=== PATIENT | male | born 1955 | race African-American/Black ===

== ENCOUNTER 2018-10-22 21:29 | Emergency (ER) | payer OTHER ==
[~2018-10-22] VITALS: Ht 172.7 cm; Wt 61.2 kg
--- NOTE | 2018-10-22 21:37 | ED.ADGEN ---
Past History Past Medical History: Arthritis, COPD, Schizophrenia, Other Smoking: Greater than 1 pack/day Alcohol Use: Occasionally Adult General Chief Complaint Chief Complaint ".. I think I got the flu...I ve been sick two weeks now... fever, coughing, hurts when I cough...I am tired..I can't do anything.... I get so short of breath.. can you check me for pneumonia..".." I will not be admitted for any reason..." HPI HPI Patient is a 63 year old male who presents with above hx and complaints, dyspnea ,cough, sore throat, myalgia, arthralgia, fever, chills, and generalized malaise. Patient has a 88-[id number]-diet smoking history. Patient continues to smoke approximately 2 packs of cigarettes a day. Recently has not been able to smoke as much because he is too short of breath. Patient denies any specific ill contacts or recent travel. Patient denies any history immunosuppression. Patient has been told before that he has bronchitis and possibly COPD. Patient does have a past history of schizophrenia, but no current hallucinations or delusions. Patient is on full disability for his schizophrenia. [facility]. Patient denies any previous heart attacks. Review of Systems Review of Systems Constitutional: History of fever or chills [] Eyes: Denies change in visual acuity, redness, or eye pain [] HENT: History of nasal congestion and sore throat [] Respiratory: History of chronic cough and shortness of breath [] Cardiovascular: No additional information not addressed in HPI [] GI: Denies abdominal pain,, vomiting, bloody stools or diarrhea []history of nausea : Denies dysuria or hematuria [] Musculoskeletal: Denies back pain or joint pain [] Integument: Denies rash or skin lesions [] Neurologic: Denies headache, focal weakness or sensory changes [] Endocrine: Denies polyuria or polydipsia [] All other systems were reviewed and found to be within normal limits, except as documented in this note. Family History Family History Noncontributory Current Medications Current Medications Current Medications Medications (Trade) Dose Ordered Sig/Shadi Start Time Stop Time Status Last Admin Dose Admin Aspirin (Aiden Aspirin) 325 mg 1X ONCE 10/22/18 21:45 10/22/18 21:46 DC 10/22/18 22:18 325 MG Azithromycin (Zithromax) 500 mg 1X ONCE 10/22/18 23:30 10/22/18 23:30 DC Ceftriaxone Sodium 1 gm/ Sodium Chloride 50 ml @ 100 mls/hr 1X ONCE 10/22/18 23:30 10/22/18 23:30 DC Enoxaparin Sodium (Lovenox 60mg Syringe) 60 mg 1X ONCE 10/22/18 23:30 10/22/18 23:30 DC Info (Do NOT chart on this entry -- for MONITORING) 1 each PRN DAILY PRN 10/22/18 23:00 10/22/18 23:15 DC Iohexol (Omnipaque 350 Mg/ml) 100 ml 1X ONCE 10/22/18 23:30 10/22/18 23:30 DC Lactated Ringer's 1,000 ml @ 100 mls/hr Q10H 10/22/18 21:39 10/22/18 23:15 DC 10/22/18 22:23 100 MLS/HR Methylprednisolone Sodium Succinate (SOLU-Medrol 125MG VIAL) 125 mg 1X ONCE 10/22/18 23:30 10/22/18 23:30 DC Potassium Chloride (KCl Oral Soln) 40 meq 1X ONCE 10/22/18 23:30 10/22/18 23:30 DC See nursing for home medications Allergies Allergies Allergies Coded Allergies Type Severity Reaction Last Updated Verified No Known Drug Allergies 10/22/18 No Physical Exam Physical Exam Constitutional: Moderately acute distress, ill in appearance HENT: Normocephalic, atraumatic, bilateral external ears normal, oropharynx moist, no oral exudates, nose rhinorrhea. Poor dentition Eyes: PERRLA, EOMI, conjunctiva normal, no discharge. [] Neck: Normal range of motion, no tenderness, supple, no stridor. [] Cardiovascular: Tachycardia Heart rate regular rhythm, no murmur []does have occasional PVC on monitor Lungs & Thorax: Bilateral breath sounds equal at apex with scattered wheezing throughout on auscultation . Has []basilar rhonchi bilaterally Abdomen: Bowel sounds normal, soft, no tenderness, no masses, no pulsatile masses. [] Skin: Warm, dry, no erythema, . []Poor turgor. Ichthyosis Back: No tenderness, no CVA tenderness. [] Extremities: No tenderness, no cyanosis, no clubbing, ROM intact, no edema. [ Arthritic changes. Muscle wasting Neurologic: Alert and oriented X 3, normal motor function, normal sensory function, no gross focal deficits noted. [] Psychologic: Affect anxious, judgement normal, mood normal. []No active hallucinations or delusions. No suicidal or homicidal ideations Current Patient Data Vital Signs Vital Signs Date Time Temp Pulse Resp B/P (MAP) Pulse Ox O2 Delivery O2 Flow Rate FiO2 10/22/18 22:36 100 18 109/55 (73) 95 Nasal Cannula 2.0 10/22/18 21:40 98.8 Lab Results Laboratory Tests Test 10/22/18 21:56 10/22/18 22:09 10/22/18 22:26 10/22/18 22:37 White Blood Count 10.5 x10^3/uL (4.0-11.0) Red Blood Count 3.98 x10^6/uL (4.30-5.70) L Hemoglobin 12.7 g/dL (13.0-17.5) L Hematocrit 36.9 % (39.0-53.0) L Mean Corpuscular Volume 93 fL (79-100) Mean Corpuscular Hemoglobin 32 pg (25-35) Mean Corpuscular Hemoglobin Concent 35 g/dL (31-37) Red Cell Distribution Width 14.2 % (11.5-14.5) Platelet Count 294 x10^3/uL (140-400) Neutrophils (%) (Auto) 78 % (31-73) H Lymphocytes (%) (Auto) 15 % (24-48) L Monocytes (%) (Auto) 6 % (0-9) Eosinophils (%) (Auto) 0 % (0-3) Basophils (%) (Auto) 1 % (0-3) Neutrophils # (Auto) 8.2 x10^3uL (1.8-7.7) H Lymphocytes # (Auto) 1.6 x10^3/uL (1.0-4.8) Monocytes # (Auto) 0.6 x10^3/uL (0.0-1.1) Eosinophils # (Auto) 0.0 x10^3/uL (0.0-0.7) Basophils # (Auto) 0.1 x10^3/uL (0.0-0.2) Prothrombin Time 9.7 SEC (9.4-11.4) Prothrombin Time INR 1.0 (0.9-1.1) PTT 35 SEC (23-33) H D-Dimer (Valentina) 1.00 mg/L (0.00-0.50) H Sodium Level 133 mmol/L (136-145) L Potassium Level 2.6 mmol/L (3.5-5.1) *L Chloride Level 95 mmol/L (98-107) L Carbon Dioxide Level 29 mmol/L (21-32) Anion Gap 9 (6-14) Blood Urea Nitrogen 17 mg/dL (8-26) Creatinine 1.0 mg/dL (0.7-1.3) Estimated GFR (Cockcroft-Gault) 91.3 Glucose Level 100 mg/dL (70-99) H Calcium Level 8.6 mg/dL (8.5-10.1) Magnesium Level 1.9 mg/dL (1.8-2.4) Total Bilirubin 0.3 mg/dL (0.2-1.0) Direct Bilirubin 0.1 mg/dL (0.0-0.2) Aspartate Amino Transferase (AST) 24 U/L (15-37) Alanine Aminotransferase (ALT) 26 U/L (16-63) Alkaline Phosphatase 104 U/L (46-116) Creatine Kinase 88 U/L (39-308) Troponin I Quantitative < 0.017 ng/mL (0-0.055) DC-Vzy-K-Type Natriuretic Peptide 63 pg/mL (0-124) Total Protein 7.2 g/dL (6.4-8.2) Albumin 2.4 g/dL (3.4-5.0) L Triglycerides Level 120 mg/dL (0-150) Cholesterol Level 132 mg/dL (0-200) LDL Cholesterol, Calculated 88 mg/dL (0-100) VLDL Cholesterol, Calculated 24 mg/dL (0-40) Non-HDL Cholesterol Calculated 112 mg/dL (0-129) HDL Cholesterol 20 mg/dL (40-60) L Cholesterol/HDL Ratio 6.0 Thyroid Stimulating Hormone (TSH) 1.802 uIU/mL (0.358-3.740) Blood pH 7.50 (7.35-7.46) H Blood Gas PCO2 37 mmHg (35-46) Blood Gas PO2 23 mmHg (80-100) *L Blood Gas HCO3 29 mmol/L (21-28) H Arterial Bld O2 Saturation (Calc) 46 % (92-99) L FiO2 21 % Influenza Type A (Rapid) Negative (NEGATIVE) Influenza Type B (Rapid) Negative (NEGATIVE) Group A Streptococcus Rapid Negative (NEGATIVE) EKG EKG My interpretation EKG shows a sinus rhythm at 98 bpm. Does have some nonspecific anterior lateral changes. But no findings of acute STEMI with contralateral changes does have somewhat prolonged QT interval at 86 ms QTC is 508 ms[] Radiology/Procedures Radiology/Procedures My interpretation Patient chest x-ray has findings of chronic lung changes such as COPD. Does have bibasilar infiltrates consistent with pneumonia.[] Course & Med Decision Making Course & Med Decision Making Pertinent Labs and Imaging studies reviewed. (See chart for details). After steroids and antibiotics and breathing treatments patient's symptoms improved. Patient however would not be admitted. Patient refused to stay even long enough to get a prescription for antibiotics. Stated he would come back after he got stuff at home done. Begged patient to reconsider his decision to leave. Patient exhibits UCAR capacity- significant other also begged patient to stay. Patient refused. Patient refused to take any prescription . Stated he would come back or go to [facility]. Advised pt to stop smoking, push juice drinks and return at any time. [] Final Impression Final Impression 1. Respiratory failure-hypoxia[] 2. Acute on chronic COPD exacerbation 3. Basilar pneumonia and atypical pattern- suspect viral 4. Hypokalemia-critical 2.6 5. Hyponatremia 133 6. Anemia Hgb 12.7 7. Malnutrition Alb. 2.4 8. Elevated D-dimer 1.0 9. History of schizophrenia Dragon Disclaimer Dragon Disclaimer This electronic medical record was generated, in whole or in part, using a voice recognition dictation system. Discharge Summary Visit Information Final Diagnosis Problems Medical Problems: (1) Left against medical advice Status: Acute Brief Hospital Course Allergies Allergies Coded Allergies Type Severity Reaction Last Updated Verified No Known Drug Allergies 10/22/18 No Vital Signs Vital Signs Date Time Temp Pulse Resp B/P (MAP) Pulse Ox O2 Delivery O2 Flow Rate FiO2 10/22/18 22:36 100 18 109/55 (73) 95 Nasal Cannula 2.0 10/22/18 21:40 98.8 Lab Results Laboratory Tests Test 10/22/18 21:56 10/22/18 22:09 10/22/18 22:26 10/22/18 22:37 White Blood Count 10.5 x10^3/uL (4.0-11.0) Red Blood Count 3.98 x10^6/uL (4.30-5.70) Hemoglobin 12.7 g/dL (13.0-17.5) Hematocrit 36.9 % (39.0-53.0) Mean Corpuscular Volume 93 fL (79-100) Mean Corpuscular Hemoglobin 32 pg (25-35) Mean Corpuscular Hemoglobin Concent 35 g/dL (31-37) Red Cell Distribution Width 14.2 % (11.5-14.5) Platelet Count 294 x10^3/uL (140-400) Neutrophils (%) (Auto) 78 % (31-73) Lymphocytes (%) (Auto) 15 % (24-48) Monocytes (%) (Auto) 6 % (0-9) Eosinophils (%) (Auto) 0 % (0-3) Basophils (%) (Auto) 1 % (0-3) Neutrophils # (Auto) 8.2 x10^3uL (1.8-7.7) Lymphocytes # (Auto) 1.6 x10^3/uL (1.0-4.8) Monocytes # (Auto) 0.6 x10^3/uL (0.0-1.1) Eosinophils # (Auto) 0.0 x10^3/uL (0.0-0.7) Basophils # (Auto) 0.1 x10^3/uL (0.0-0.2) Prothrombin Time 9.7 SEC (9.4-11.4) Prothromb Time International Ratio 1.0 (0.9-1.1) Activated Partial Thromboplast Time 35 SEC (23-33) D-Dimer (Valentina) 1.00 mg/L (0.00-0.50) Sodium Level 133 mmol/L (136-145) Potassium Level 2.6 mmol/L (3.5-5.1) Chloride Level 95 mmol/L (98-107) Carbon Dioxide Level 29 mmol/L (21-32) Anion Gap 9 (6-14) Blood Urea Nitrogen 17 mg/dL (8-26) Creatinine 1.0 mg/dL (0.7-1.3) Estimated GFR (Cockcroft-Gault) 91.3 Glucose Level 100 mg/dL (70-99) Calcium Level 8.6 mg/dL (8.5-10.1) Magnesium Level 1.9 mg/dL (1.8-2.4) Total Bilirubin 0.3 mg/dL (0.2-1.0) Direct Bilirubin 0.1 mg/dL (0.0-0.2) Aspartate Amino Transf (AST/SGOT) 24 U/L (15-37) Alanine Aminotransferase (ALT/SGPT) 26 U/L (16-63) Alkaline Phosphatase 104 U/L (46-116) Creatine Kinase 88 U/L (39-308) Troponin I Quantitative < 0.017 ng/mL (0-0.055) ZK-Cxi-C-Type Natriuretic Peptide 63 pg/mL (0-124) Total Protein 7.2 g/dL (6.4-8.2) Albumin 2.4 g/dL (3.4-5.0) Triglycerides Level 120 mg/dL (0-150) Cholesterol Level 132 mg/dL (0-200) LDL Cholesterol, Calculated 88 mg/dL (0-100) VLDL Cholesterol, Calculated 24 mg/dL (0-40) Non-HDL Cholesterol Calculated 112 mg/dL (0-129) HDL Cholesterol 20 mg/dL (40-60) Cholesterol/HDL Ratio 6.0 Thyroid Stimulating Hormone (TSH) 1.802 uIU/mL (0.358-3.740) Blood Gas pH 7.50 (7.35-7.46) Blood Gas PCO2 37 mmHg (35-46) Blood Gas PO2 23 mmHg (80-100) Blood Gas HCO3 29 mmol/L (21-28) Arterial Bld O2 Saturation (Calc) 46 % (92-99) FiO2 21 % Influenza Type A (Rapid) Negative (NEGATIVE) Influenza Type B (Rapid) Negative (NEGATIVE) Group A Streptococcus Rapid Negative (NEGATIVE) Brief Hospital Course Mr. Anne is a 63 old male who presented with in Respiratory Failure- Hypoxia. Left against medical advice. Refuse to stay for meds, additional prescriptions once his saturations in symptoms improved. Discharge Information Condition at Discharge: Improved Dischare Medications Current Medications Aspirin (Aiden Aspirin) 325 mg 1X ONCE PO Last administered on 10/22/18at 22:18 ; Admin Dose 325 MG; Start 10/22/18 at 21:45; Stop 10/22/18 at 21:46; Status DC Lactated Ringer's 1,000 ml @ 100 mls/hr Q10H IV Last administered on 10/22/18at 22:23; Admin Dose 100 MLS/HR; Start 10/22/18 at 21:39; Stop 10/22/18 at 23:15; Status DC Potassium Chloride (KCl Oral Soln) 40 meq 1X ONCE PO ; Start 10/22/18 at 23:30; Stop 10/22/18 at 23:30; Status DC Enoxaparin Sodium (Lovenox 60mg Syringe) 60 mg 1X ONCE SQ ; Start 10/22/18 at 23 :30; Stop 10/22/18 at 23:30; Status DC Methylprednisolone Sodium Succinate (SOLU-Medrol 125MG VIAL) 125 mg 1X ONCE IV ; Start 10/22/18 at 23:30; Stop 10/22/18 at 23:30; Status DC Ceftriaxone Sodium 1 gm/ Sodium Chloride 50 ml @ 100 mls/hr 1X ONCE IV ; Start 10/22/18 at 23:30; Stop 10/22/18 at 23:30; Status DC Azithromycin (Zithromax) 500 mg 1X ONCE PO ; Start 10/22/18 at 23:30; Stop at 23:30; Status DC Iohexol (Omnipaque 350 Mg/ml) 100 ml 1X ONCE IV ; Start 10/22/18 at 23:30; Stop 10/22/18 at 23:30; Status DC Info (Do NOT chart on this entry -- for MONITORING) 1 each PRN DAILY PRN MC SEE COMMENTS; Start 10/22/18 at 23:00; Stop 10/22/18 at 23:15; Status DC Dragingrid Disclaimer This chart was dictated in whole or in part using Voice Recognition software in a busy, high-work load, and often noisy Emergency Department environment. It may contain unintended and wholly unrecognized errors or omissions. MARGARITA BOWERS MD Oct 22, 2018 21:37
[2018-10-22] MEDS: ASPIRIN 325 MG TABLET PO ONE (22:18)
--- NOTE | 2018-10-22 22:18 | EKG ---
[address] [address] Test Date: 2018-10-22 Test Time: 21:52:24 Pat Name: FORTINO AHUJA Department: Room: Gender: M Principal Java Developer: : [id number] Requested By: MARGARITA BOWERS Order Number: [id number] Reading MD: José Antonio Santos MD Measurements Intervals [place] Rate: 98 P: 72 DC: 130 QRS: 49 QRSD: 108 T: 64 QT: 396 QTc: 508 Interpretive Statements SINUS RHYTHM NON-SPECIFIC ST/T CHANGES PROLONGED QT Electronically Signed On 10-23-2018 10:50:19 ART HISTORIAN by José Antonio Santos MD
[2018-10-22 22:20] LABS: BGAS PH 7.5 (7.35-7.46)
[2018-10-22 22:21] LABS: BASO # 0.1 x10^3/uL (0.0-0.2); BASO % 1 % (0-3); EOS % 0 % (0-3); HEMATOCRIT 36.9 % (39.0-53.0); HEMOGLOBIN 12.7 g/dL (13.0-17.5); LYMPH # 1.6 x10^3/uL (1.0-4.8); LYMPH % 15 % (24-48); MEAN CORPUSCULAR HEMOGLOBIN 32 pg (25-35); MEAN CORPUSCULAR HGB CONC 35 g/dL (31-37); MEAN CORPUSCULAR VOLUME 93 fL (79-100); MONO # 0.6 x10^3/uL (0.0-1.1); MONO % 6 % (0-9); NEUT # 8.2 x10^3uL (1.8-7.7); NEUT % 78 % (31-73); PLATELET COUNT 294 x10^3/uL (140-400); RED BLOOD COUNT 3.98 x10^6/uL (4.30-5.70); RED CELL DISTRIBUTION WIDTH 14.2 % (11.5-14.5); WHITE BLOOD COUNT 10.5 x10^3/uL (4.0-11.0)
[2018-10-22] MEDS: IV RINGERS SOLUTION,LACTATED 1,000 ML IV SCH (22:23)
--- NOTE | 2018-10-22 22:34 | RAD ---
PA and lateral chest. HISTORY: Cough, fever, hypoxic PA and lateral views were taken of the chest. There is a mild left lower lobe infiltrate suggesting an acute pneumonia. There is no effusion. The heart is normal in size. There is no old study for comparison. There is either underlying fibrosis or a slight right lung infiltrate as well. IMPRESSION: 1. Mild basilar infiltrates suggesting pneumonia. Electronically signed by: Kayden Coy MD (10/22/2018 10:30 PM) [facility]
[2018-10-22 22:36] VITALS: BP 109/55
[2018-10-22 22:38] LABS: ALBUMIN 2.4 g/dL (3.4-5.0); CALCIUM 8.6 mg/dL (8.5-10.1); DIRECT BILIRUBIN 0.1 mg/dL (0.0-0.2); GFR 91.3; MAGNESIUM 1.9 mg/dL (1.8-2.4); TOTAL BILIRUBIN 0.3 mg/dL (0.2-1.0); TOTAL PROTEIN 7.2 g/dL (6.4-8.2)
[2018-10-22 22:41] LABS: POTASSIUM 2.6 mmol/L (3.5-5.1)
[2018-10-22 22:54] LABS: INFLUENZA A PATIENT NEGATIVE (NEGATIVE); INFLUENZA B PATIENT NEGATIVE (NEGATIVE)
[2018-10-22] MEDS ORDERED: CONTRAST GIVEN MC PRN (23:00)
[2018-10-22] MEDS ORDERED: POTASSIUM CHLORIDE 20 MEQ/15 ML ORAL LIQUID. PO ONE (23:30)
[2018-10-22] MEDS ORDERED: methylPREDNISolone SOD SUCC PF 125 MG/2 ML VIAL. IV ONE (23:30)
[2018-10-22] MEDS ORDERED: AZITHROMYCIN 250 MG TABLET. PO ONE (23:30)
[2018-10-22] MEDS ORDERED: IOHEXOL 350 MG/ML 100 ML VIAL. IV ONE (23:30)
[2018-10-22] MEDS ORDERED: ENOXAPARIN ** NOTE DOSE ** SYRINGE SQ ONE (23:30)
[2018-10-23 13:53] LABS: THYROID STIM HORMONE (TSH) 1.802 uIU/mL (0.358-3.740)
== END 2018-10-22 23:03 | disposition left against medical advice (07) ==
LOC: MERGE 21:29 → ER 21:29
DX: J96.91 Respiratory failure, unspecified with hypoxia (principal); J44.1 Chronic obstructive pulmonary disease with (acute) exacerbation; J44.0 Chronic obstructive pulmonary disease with (acute) lower respiratory infection; J18.9 Pneumonia, unspecified organism; E87.6 Hypokalemia; E87.1 Hypo-osmolality and hyponatremia; D64.9 Anemia, unspecified; E46 Unspecified protein-calorie malnutrition; R79.1 Abnormal coagulation profile; F20.9 Schizophrenia, unspecified; M19.90 Unspecified osteoarthritis, unspecified site; F17.200 Nicotine dependence, unspecified, uncomplicated; Z68.20 Body mass index [BMI] 20.0-20.9, adult
CPT/HCPCS: 36415; 71046; 80048; 80061; 80076; 82550; 82803; 83735; 83880; 84443; 84484; 85025; 85379; 85610; 85730; 87040; 87070; 87804; 87880; 93005; 99284; J7120